=== PATIENT | male | born 1975 | race Two or more races ===

== ENCOUNTER → 2021-09-03 07:10 | Outpatient (CLI) | payer OTHER | END | disposition home or self-care (01) | LOC: NUCLEAR 06:45 → EDBD 07:10 → NUCLEAR 07:10 | DX: I20.8 Other forms of angina pectoris (principal); I87.2 Venous insufficiency (chronic) (peripheral) ==

== ENCOUNTER 2021-09-03 07:20 | Outpatient (CLI) | payer OTHER | END 2021-09-03 14:23 | disposition home or self-care (01) | LOC: EDBD 07:20 → LAB 07:20 | DX: U07.1 COVID-19 (principal); B34.1 Enterovirus infection, unspecified ==

== ENCOUNTER 2021-10-16 07:25 | Outpatient (CLI) | payer OTHER | END 2021-10-16 07:32 | disposition home or self-care (01) | LOC: LAB 07:25 | DX: G47.33 Obstructive sleep apnea (adult) (pediatric) (principal); Z12.5 Encounter for screening for malignant neoplasm of prostate; Z12.11 Encounter for screening for malignant neoplasm of colon; Z11.3 Encounter for screening for infections with a predominantly sexual mode of transmission; Z13.1 Encounter for screening for diabetes mellitus; Z13.6 Encounter for screening for cardiovascular disorders; Z00.00 Encounter for general adult medical examination without abnormal findings; E11.9 Type 2 diabetes mellitus without complications; I11.9 Hypertensive heart disease without heart failure ==

== ENCOUNTER 2021-11-28 06:52 | Outpatient (CLI) | payer OTHER | END 2021-11-28 07:00 | disposition home or self-care (01) | LOC: LAB 06:52 | DX: N52.01 Erectile dysfunction due to arterial insufficiency (principal); P52.9 Intracranial (nontraumatic) hemorrhage of newborn, unspecified; E11.65 Type 2 diabetes mellitus with hyperglycemia ==

== ENCOUNTER 2022-12-26 08:50 | Outpatient (CLI) | payer OTHER | END 2022-12-26 08:51 | disposition home or self-care (01) | LOC: LAB 08:50 | DX: I11.9 Hypertensive heart disease without heart failure (principal); E11.65 Type 2 diabetes mellitus with hyperglycemia; Z00.00 Encounter for general adult medical examination without abnormal findings; Z12.5 Encounter for screening for malignant neoplasm of prostate; Z12.11 Encounter for screening for malignant neoplasm of colon; Z13.6 Encounter for screening for cardiovascular disorders ==